=== PATIENT | male | born 1980 | race Hispanic/Latino ===

== ENCOUNTER → 2023-08-09 11:00 | Outpatient (CLI) | payer OTHER, SELFPAY ==
--- NOTE | 2023-08-09 11:07 | DI.RAD.S_ITS ---
PROCEDURE: XR ANKLE RT MIN 3V INDICATIONS: ANKLE PAIN* TECHNIQUE: 3 views of the ankle were acquired. COMPARISON: None. FINDINGS: Bones: No fractures or dislocations. Ankle mortise is normally aligned. No suspicious bony lesions. Soft tissues: Small tibiotalar joint effusion. Achilles tendon appears normal. IMPRESSION: 1. No acute bony abnormality. 2. Small ankle joint effusion. 3. If clinical symptoms persist or there is clinical suspicion for internal derangement, MRI may be helpful. Dictated by: Renae Garcia M.D. on 08/09/2023 at 12:02 Approved by: Renae Garcia M.D. on 08/09/2023 at 12:03
== END ==
PROVIDERS: Referring Provider Family Medicine; Visit Provider Family Medicine
DX: M25.571 Pain in right ankle and joints of right foot (principal); M25.471 Effusion, right ankle
CPT/HCPCS: 73610

== ENCOUNTER → 2023-08-25 08:21 | Outpatient (CLI) | payer OTHER, SELFPAY ==
--- NOTE | 2023-08-25 08:23 | DI.MRI.S_ITS ---
PROCEDURE: MR ANKLE RT WO CON INDICATIONS: RIGHT ANKLE SPRAIN TECHNIQUE: Noncontrast sagittal T1 spin echo and T2 fast spin echo with fat saturation, axial proton density fast spin echo and T2 fast spin echo with fat saturation, coronal T1 spin echo and T2 fast spin echo with fat saturation through the ankle/hindfoot. COMPARISON: [facility], CR, XR ANKLE RT MIN 3V, 08/09/2023, 11:08. FINDINGS: Image quality: Excellent. Bones and joints: There is significant marrow edema involving posterior and lateral portion of distal tibia extending to distal tibial plafond. Linear T2 hyperintense signal is noted within the area of edema consistent with a nondisplaced posterior malleolus fracture. Mild edema is also seen involving medial malleolus without discrete fracture line. Mild edema involving lateral periphery of lateral malleolus is also seen without discrete fracture line. There is no osteochondral injuries of talar dome. Moderate tibiotalar and subtalar joint effusion is seen, no gross loose bodies. Medial structures: The posterior tibialis tendon is mildly thickened with small amount of fluid distending tendon sheath at the level of distal talus and talonavicular joint. The flexor digitorum longus, and flexor hallucis longus tendons are intact. The posterior tibial neurovascular bundle appears normal within the tarsal tunnel, without extrinsic mass effect. The deep layer (anterior and posterior tibiotalar ligaments) and superficial layer (tibionavicular, tibiospring, and tibiocalcaneal ligaments) of the deltoid ligament appear normal. The spring ligament components (superomedial calcaneonavicular, medioplantar oblique calcaneonavicular, and inferoplantar longitudinal ligaments) are intact. Lateral structures: The anterior talofibular, calcaneofibular, and posterior talofibular ligaments appear thickened with subtle intrasubstance T2 hyperintense signal. More superiorly, the anterior tibial fibular ligament is thickened with subtle intrasubstance T2 hyperintense signal the posterior tibial fibular ligament is intact. The tibiofibular syndesmosis is normal in width at 2 mm or less. The peroneus brevis tendon is intact. Peroneus longus tendon is thickened at the level of calcaneocuboid joint and cuboid. The sinus tarsi demonstrates normal fatty signal, without edema, fibrosis, or cyst formation. Visualized sinus tarsi components (cervical ligament, interosseous talocalcaneal ligament, roots of the inferior extensor retinaculum) appear normal. The calcaneonavicular and calcaneocuboid components of the bifurcate ligament appear intact. The dorsal calcaneocuboid ligament appears intact. Anterior structures: The tibialis anterior, extensor hallucis longus, and extensor digitorum longus tendons appear intact. The dorsal talonavicular ligament appears intact. Posterior and plantar structures: Achilles tendon is intact. Medial and lateral bands of the plantar fascia are of normal thickness. No abductor digiti quinti muscle atrophy to suggest Carrillo neuropathy. IMPRESSION: 1. Finding is consistent with a nondisplaced fracture through posterior malleolus as described above. Mild bony contusion is also seen involving medial and lateral malleoli. No other fracture or dislocation. Moderate joint effusion, no gross loose bodies. No osteochondral injuries of talar dome. 2. Low-grade tenosynovitis involving posterior tibialis tendon at the level of distal talus and talonavicular joint. 3. Peroneus longus tendinosis at the level of calcaneocuboid joint and cuboid. 4. Sprain/low-grade partial-thickness tear involving anterior and posterior talofibular ligament, calcaneofibular ligament and anterior tibial fibular ligament. Medial ankle ligaments are intact. Dictated by: Lonnie Terrell M.D. on 08/26/2023 at 11:05 Approved by: Lonnie Terrell M.D. on 08/26/2023 at 11:09
== END ==
PROVIDERS: Referring Provider Family Medicine; Visit Provider Family Medicine
DX: S93.491A Sprain of other ligament of right ankle, initial encounter (principal); S90.01XA Contusion of right ankle, initial encounter; S93.411A Sprain of calcaneofibular ligament of right ankle, initial encounter; S93.431A Sprain of tibiofibular ligament of right ankle, initial encounter; M25.471 Effusion, right ankle; M65.871 Other synovitis and tenosynovitis, right ankle and foot; X58.XXXA Exposure to other specified factors, initial encounter
CPT/HCPCS: 73721